=== PATIENT | male | born 1995 | race Caucasian/White ===

== ENCOUNTER 2016-04-30 17:04 | Emergency (ER) | payer OTHER ==
[2016-04-30] MEDS ORDERED: IBUPROFEN 800 MG TABLET PO STA (17:34)
[2016-04-30] MEDS ORDERED: IBUPROFEN 800 MG TABLET PO ONE (17:36)
== END 2016-04-30 17:45 | disposition home or self-care (01) ==
DX: S39.011A Strain of muscle, fascia and tendon of abdomen, initial encounter (principal); W22.09XA Striking against other stationary object, initial encounter; Y92.89 Other specified places as the place of occurrence of the external cause; Y99.0 Civilian activity done for income or pay; F17.200 Nicotine dependence, unspecified, uncomplicated
CPT/HCPCS: 1040M; 99283; A9270

== ENCOUNTER 2019-03-08 13:41 | Emergency (ER) | payer OTHER ==
[2019-03-08 13:49] VITALS: BP 137/65
[2019-03-08] MEDS ORDERED: IBUPROFEN 600 MG TABLET PO STA (14:41)
--- NOTE | 2019-03-08 15:08 | XRAY Report ---
Reason: knee injury with pain Procedure Date: 03/08/2019 Accession Number: [id number] / [id number] Procedure: XR - Knee 3 View RT CPT Code: Final Report FULL RESULT: EXAM: RIGHT KNEE RADIOGRAPHY EXAM DATE: 03/08/2019 02:58 PM. CLINICAL HISTORY: Knee injury with pain. COMPARISON: None. TECHNIQUE: 3 views. FINDINGS: Bones: Normal. No fractures or bone lesions. Joints: Normal. No effusion. No subluxations. Soft Tissues: Normal. No soft tissue swelling. IMPRESSION: Normal knee radiography. [facility]
--- NOTE | 2019-03-08 15:09 | ED Physician Documentation ---
PD HPI LOWER EXT INJURY - Stated complaint Stated Complaint: R KNEE INJURY - Chief complaint Chief Complaint: Trauma Ext - History obtained from History obtained from: Patient - History of Present Illness PD HPI LOW EXT INJURY LOCATION: Right, Knee Type of injury: Fall, Twist (He states he was walking down an incline with some lumber on his shoulder and slipped and fell with a twisting injury of the right knee. It ended with a valgus stress underneath him and a abrupt landing onto it. He described swelling in the knee and pain with range of motion and weightbearing. The swelling is gone down but he still feels pain with walking as well as a feeling of instability and clicking and popping.) Where injury occurred: Home Timing - onset: How many days ago (5) Timing - duration: Days (5) Timing - details: Abrupt onset, Still present Worsened by: Moving, Other (walking) Associated symptoms: Swelling, Other (clicking and popping). No: Weakness, Numbness Contributing factors: No: Prior ortho surgery Similar symptoms before: Has not had sx before Recently seen: Not recently seen Review of Systems Skin: denies: Abrasion (s), Laceration (s) Neurologic: denies: Focal weakness, Numbness PD PAST MEDICAL HISTORY - Past Medical History Past Medical History: No - Past Surgical History Past Surgical History: Yes - Present Medications Home Medications: Ambulatory Orders Medication Instructions Recorded Confirmed Ibuprofen [Motrin] 800 mg PO Q8H PRN #30 tablet 04/30/16 Hydrocodone/Acetaminophen [[place] 1 each PO Q6H PRN #15 tablet 03/08/19 5-325 Tablet] Naproxen 500 mg PO BID #20 tablet 03/08/19 - Allergies Allergies/Adverse Reactions: Allergies Allergy/AdvReac Type Severity Reaction Status Date / Time adhesive Allergy Unknown Verified 03/08/19 13:47 - Social History Does the pt smoke?: Yes Smoking Status: Current every day smoker Does the pt drink ETOH?: No Does the pt have substance abuse?: No PD ED PE NORMAL - Vitals Vital signs reviewed: Yes - General General: Alert and oriented X 3, No acute distress, Well developed/nourished - Derm Derm: Normal color, Warm and dry - Extremities Extremities: Other (The right knee is without any effusion at this time. There is tenderness along the anterior and lateral aspect. There is some mild tenderness on the medial joint line. The posterior aspect is not tender. He is able to fully extend his knee with some discomfort but not hurting too much. Examination of the knee shows a significant pain with cruciate testing and also some with rotational pressure at the knee. Valgus stress does not really hurt along the medial aspect and there is no noted laxity.) - Neuro Neuro: Alert and oriented X 3, No motor deficit, Normal speech Results - Vitals Vitals: Vital Signs - 24 hr 03/08/19 13:47 Temperature 36.8 C Heart Rate 82 Respiratory 15 Rate Blood Pressure 137/65 H O2 Saturation 98 Oxygen O2 Source Room air - Rads (name of study) right knee Radiology: Prelim report reviewed, EMP read contemporaneously (no fractures), See rad report PD MEDICAL DECISION MAKING - ED course Complexity details: reviewed results, re-evaluated patient (he says it feels better with knee brace. ), considered differential (Mechanism and clinical exam are suggestive of cruciate ligament injury or possible meniscal injury. We can give a knee brace have him use anti-inflammatories and follow-up with orthopedics. There is no fracture seen on x-ray.), d/w patient Departure - Departure Disposition: Home, Self Care Clinical Impression: Strain of right knee Qualifiers: Encounter type: initial encounter Qualified Code(s): S86.911A - Strain of unspecified muscle(s) and tendon(s) at lower leg level, right leg, initial encounter Condition: Stable Record reviewed to determine appropriate education?: Yes Instructions: ED Knee Injury Cruciate Ligament Follow-Up: Justin Childress MD [Provider Admit Priv/Credential] - Prescriptions: Hydrocodone/Acetaminophen [[place] 5-325 Tablet] 1 each PO Q6H PRN #15 tablet PRN Reason: Pain Naproxen 500 mg PO BID #20 tablet Comments: Your x-ray appears normal without any obvious bony abnormality. Most knee injuries are of the ligaments and cartilage. On exam your findings are suggestive of a cruciate injury of the ligament. It may be some injury to the cartilage (meniscus) as well. These would initially be treated with a knee brace with limited range of motion when you are up and around. Anti-inflammatories as well and adding pain medicine if needed. Follow-up with orthopedics for reevaluation next week. Call today for an appointment. Activity as tolerated with the knee brace. Discharge Date/Time: 03/08/19 15:48
== END 2019-03-08 15:48 | disposition home or self-care (01) ==
LOC: ED 13:41
DX: S86.911A Strain of unspecified muscle(s) and tendon(s) at lower leg level, right leg, initial encounter (principal); W10.2XXA Fall (on)(from) incline, initial encounter; Y93.89 Activity, other specified; Y99.0 Civilian activity done for income or pay; F17.200 Nicotine dependence, unspecified, uncomplicated
CPT/HCPCS: 73562; 99283; A9270

== ENCOUNTER 2019-04-11 07:22 | Outpatient (CLI) | payer OTHER ==
--- NOTE | 2019-04-11 13:56 | MRI Report ---
Reason: SPONT DISRUP OF MED COLLAT LIG, RT KNEE Procedure Date: 04/11/2019 Accession Number: [id number] / [id number] Procedure: MRI - Knee RT W/O CPT Code: Final Report FULL RESULT: EXAM: RIGHT KNEE MRI WITHOUT CONTRAST EXAM DATE: 04/11/2019 08:18 AM. CLINICAL HISTORY: Medial right knee pain after fall injury on 03/02/2019 COMPARISON: KNEE 3 VIEW RT 03/08/2019 2:46 PM. TECHNIQUE: Multiplanar, multisequence T1-weighted and fluid-sensitive sequences of the knee without contrast. Other: None. FINDINGS: Bones and articular cartilage: Focal subcortical marrow edema at the anteromedial aspect of the medial tibial plateau. Mild marrow edema at the inferior aspect of the patella. No subluxations. Articular cartilage is within normal limits. No bone lesions or acute fracture. Medial Meniscus: The medial meniscus is intact. Lateral Meniscus: The lateral meniscus is intact. Cruciate Ligaments: The anterior and posterior cruciate ligaments are intact. Collateral Ligaments: The medial collateral and lateral collateral ligamentous structures are intact. Tendons: The quadriceps, patellar, semimembranosus, and popliteus tendons are unremarkable. Musculature: No edema or fatty atrophy. Other: No effusion. No popliteal cyst. No loose bodies. The medial and lateral retinacula are intact. The subcutaneous tissues and fat pads are unremarkable. IMPRESSION: 1. Focal subcortical marrow edema at the anteromedial aspect of the medial tibial plateau and the inferior aspect of the patella which may represent bone contusions. No acute fracture or bone lesions. 2. No ligament or meniscal injury. RAD[facility]
== END 2019-04-11 07:23 | disposition home or self-care (01) ==
LOC: DI 07:22
PROVIDERS: ATTEND Orthopaedic Surgery Sports Medicine
DX: M23.631 Other spontaneous disruption of medial collateral ligament of right knee (principal)

== ENCOUNTER 2019-12-12 17:22 | Outpatient (CLI) | payer OTHER ==
--- NOTE | 2019-12-13 10:09 | XRAY Report ---
PROCEDURE: Knee 4 View BILAT INDICATIONS: CONTUSION OF RIGHT KNEE, SUBSEQUENT TECHNIQUE: 4 views of each knee(s) were acquired. COMPARISON: None. FINDINGS: Bones: No acute fractures or dislocations. No significant degenerative change or joint space narrow ing of the weightbearing views. No suspicious bony lesions. Soft tissues: No joint effusion. No suspicious soft tissue calcifications. IMPRESSION: Bilateral knee without acute radiographic abnormalities or significant degenerative schmitt ge. Reviewed by: Ehsan Arce MD on 12/13/2019 10:08 AM PDT Approved by: Ehsan Arce MD on 12/13/2019 10:08 AM PDT Station ID: [id number]
== END 2019-12-12 17:23 | disposition home or self-care (01) ==
LOC: DI 17:22
PROVIDERS: ATTEND Physician Assistant
DX: S80.01XD Contusion of right knee, subsequent encounter (principal)

== ENCOUNTER 2020-02-22 16:57 | Outpatient (CLI) | payer OTHER ==
--- NOTE | 2020-02-23 11:07 | XRAY Report ---
PROCEDURE: Lumbar Spine Complete INDICATIONS: LOW BACK PAIN,CONTUSION RT KNEE TECHNIQUE: 5 views of the lumbar spine were acquired. COMPARISON: None. FINDINGS: Mild levocurvature. No fracture. Mild narrowing of the L5-S1 disc space Scattered multilevel endplate spurring and diffuse facet arthropathy. Soft tissues: Overlying bowel gas pattern is normal. No suspicious soft tissue calcifications. IMPRESSION: Mild L5-S1 spondylosis , and mild levocurvature Diffuse facet arthropathy Reviewed by: Robel Heredia MD on 02/23/2020 11:06 AM PST Approved by: Robel Heredia MD on 02/23/2020 11:06 AM PST Station ID: [id number]
--- NOTE | 2020-02-23 11:08 | XRAY Report ---
PROCEDURE: Knee 3 View RT INDICATIONS: LOW BACK PAIN,CONTUSION RT KNEE TECHNIQUE: 3 views of the right knee(s) were acquired. COMPARISON: None. FINDINGS: Bones: No fractures or dislocations. No suspicious bony lesions. Soft tissues: No joint effusion. No suspicious soft tissue calcifications. IMPRESSION: Negative examination. Reviewed by: Robel Heredia MD on 02/23/2020 11:07 AM [facility] Approved by: Robel Heredia MD on 02/23/2020 11:07 AM [facility] Station ID: [id number]
== END 2020-02-22 16:58 | disposition home or self-care (01) ==
LOC: DI 16:57
DX: M47.817 Spondylosis without myelopathy or radiculopathy, lumbosacral region (principal); S80.01XA Contusion of right knee, initial encounter

== ENCOUNTER 2021-08-07 18:18 | Emergency (ER) | payer MEDICAID ==
[2021-08-07 18:57] LABS: BILIRUBIN,URINE NEGATIVE (NEGATIVE); GLUCOSE, URINE (UA) NEGATIVE (NEGATIVE); KETONES,URINE (UA) NEGATIVE (NEGATIVE); LEUKOCYTE ESTERASE, URINE NEGATIVE (NEGATIVE); NITRITE,URINE NEGATIVE (NEGATIVE); OCCULT BLOOD,URINE NEGATIVE (NEGATIVE); PH,URINE 6.5 PH (5.0-7.5); PROTEIN,URINE NEGATIVE (NEGATIVE); UROBILINOGEN,URINE 0.2 (NORMAL) E.U./dL (NORMAL)
[2021-08-07 18:59] LABS: CLARITY,URINE CLEAR (CLEAR)
--- NOTE | 2021-08-07 19:07 | ED Physician Documentation ---
History of Present Illness - Stated complaint Stated Complaint: MALE - Chief complaint Chief Complaint: General - Additonal information Additional information: 26-year-old male presents emergency department for evaluation of 8 years left testes and scrotal swelling. He was presenting to his primary care office today to establish care and when they viewed the scrotum and testicle they advised him to come to the emergency department. It is mildly painful. Over time it is simply enlarged. He denies penile pain dysuria any history of STI. The swelling began 8 years ago but the patient does not remember any inciting injury or saddle trauma. He has no history of Undescended testes Review of Systems Constitutional: reports: Reviewed and negative Nose: reports: Reviewed and negative Cardiac: reports: Reviewed and negative Respiratory: reports: Reviewed and negative : reports: Testicular pain PD PAST MEDICAL HISTORY - Past Surgical History Past Surgical History: Yes - Present Medications Home Medications: Ambulatory Orders Medication Instructions Recorded Confirmed Ibuprofen [Motrin] 800 mg PO Q8H PRN #30 tablet 04/30/16 Hydrocodone/Acetaminophen [[place] 1 each PO Q6H PRN #15 tablet 03/08/19 5-325 Tablet] Naproxen 500 mg PO BID #20 tablet 03/08/19 - Allergies Allergies/Adverse Reactions: Allergies Allergy/AdvReac Type Severity Reaction Status Date / Time adhesive Allergy Unknown Verified 08/07/21 18:27 - Social History Does the pt smoke?: Yes Smoking Status: Current every day smoker Does the pt drink ETOH?: No Does the pt have substance abuse?: No PD ED PE EXPANDED - Male Male : Other (Large swollen left testy that is minimally tender to pain. It measures approximately 4 x 6 cm. No inguinal lymphadenopathy. Positive cremasteric on the right unable to achieve on the left. No penile discharge.) Results - Vitals Vitals: Vital Signs - 24 hr 08/07/21 18:23 Temperature 36.7 C Heart Rate 99 Respiratory 16 Rate Blood Pressure 125/73 O2 Saturation 98 Oxygen O2 Source Room air - Labs Labs: Laboratory Tests 08/07/21 18:45 Urine Color YELLOW Urine Clarity CLEAR Urine pH 6.5 Ur Specific Walters 1.025 Urine Protein NEGATIVE Urine Glucose (UA) NEGATIVE Urine Ketones NEGATIVE Urine Occult Blood NEGATIVE Urine Nitrite NEGATIVE Urine Bilirubin NEGATIVE Urine Urobilinogen 0.2 (NORMAL) Ur Leukocyte Esterase NEGATIVE Ur Microscopic Review NOT INDICATED Urine Culture Comments NOT INDICATED - Rads (name of study) testicular US Radiology: Other (Large complex hydrocele measuring 7.3 x 6.2 Centimeters in largest diameter) PD MEDICAL DECISION MAKING - ED course Complexity details: reviewed results, re-evaluated patient, considered differential, d/w patient ED course: 26-year-old male was referred to the emergency department for evaluation of swelling of his left scrotum and testicle. This has been an ongoing problem for 8 years. He did go to his primary care office today to establish care and he was advised to come to the ER for further evaluation of the testicular swelling. Subsequent ultrasound has revealed a complex hydrocele measuring 7.3 x 6.2 cm in largest dimensions. Given the chronicity of this no further treatment is warranted today. Certainly the evaluation of the scrotum at the bedside does not reveal any findings to suggest infection or cellulitis. I have advised patient to have close follow-up with his primary care provider. He would benefit from referral to urology for longer-term evaluation and management of this rather large complex hydrocele Departure - Departure Disposition: 01 Home, Self Care Clinical Impression: Left hydrocele Condition: Stable Record reviewed to determine appropriate education?: Yes Instructions: ED Hydrocele Type Not Specified Follow-Up: Erin Marcelo ARNP [Primary Care Provider] - Comments: José Miguel you were advised to come to the emergency department for evaluation of swelling in the left scrotum and testes that you have had for about 8 years. The ultrasound has shown a large complex fluid collection called a hydrocele. Given the size of years this is something that can likely be evaluated and treated through urology. Please discuss this with Yazmin Mclaughlin your primary care provider. They should make a referral for you to urology for longer-term management As this may get corrected with surgery.
[2021-08-07 21:07] VITALS: BP 115/70
--- NOTE | 2021-08-07 21:25 | Ultrasound Report ---
PROCEDURE: Testicle w/Doppler INDICATIONS: scrotal swelling TECHNIQUE: Real-time scanning was performed of the scrotum and testicles, with image documentation. Color and p ulse Doppler interrogation was performed of both testicles. COMPARISON: None. FINDINGS: Right: Testicle is normal in size at 3.8 x 2 x 2.4 cm, and homogenous in echotexture. Epididymis is normal in overall size and morphology. No hydrocele. Overlying scrotal skin is normal in thickness . Left: Testicle is normal in size at 4.9 x 2.2 x 2.9 cm, and homogeneous in echotexture. Epididymis is not well evaluated. On the left, there is a complex cystic and solid collection seen adjacent to t he testicle, with mass effect upon the left testicle itself. There is apparent layering debris seen. Overlying scrotal skin is normal in thickness. Doppler: Color and pulse Doppler demonstrate normal and symmetric arterial flow in both testicles. No varicocele is seen on the right. Evaluation for varicocele is highly limited on the left. IMPRESSION: Negative for testicular torsion Complex cystic and solid lesion seen involving the left scrotum, with mass effect upon the testicle. Hemorrhage versus neoplasm should be considered. When clinically appropriate, a urology consultation would be recommended. Note: Concordant preliminary findings given by the e business consultant upon the completion of the examination to Melissa Lee. Reviewed by: Roldan Tony MD on 08/07/2021 8:24 PM [facility] Approved by: Roldan Tony MD on 08/07/2021 8:24 PM [facility] Station ID: [id number]
[2021-08-07 22:16] LABS: CHLAMYDIA TRACHOMATIS DNA NEGATIVE (NEGATIVE); NEISSERIA GONORRHOEAE DNA NEGATIVE (NEGATIVE)
== END 2021-08-07 21:10 | disposition home or self-care (01) ==
LOC: ED 18:18
DX: N43.3 Hydrocele, unspecified (principal)
CPT/HCPCS: 81001; 81003; 87086; 87491; 87591; 87661; 93975; 99281; 99284